=== PATIENT | male | born 1980 | race Caucasian/White ===

== ENCOUNTER 2018-03-14 16:49 | Inpatient (IN) | payer BC ==
[~2018-03-14] VITALS: Ht 190.5 cm; Wt 172.8 kg
[~2018-03-14 16:49] MED LIST: ATENOLOL50 MG PO; COLCRYS0.6 M1 PO; KEFLEX500 MG PO; PERCOCET 325 MG1 TA7 PO; VICODIN ES 7501 TAB PO
[2018-03-14 16:56] VITALS: BP 168/83
[2018-03-14 17:14] LABS: BILIRUBIN NEGATIVE (NEGATIVE); BLOOD 1+ (NEGATIVE); CLARITY SL CLOUDY (CLEAR); COLOR YELLOW (YELLOW); GLUCOSE NEGATIVE (NEGATIVE); KETONE NEGATIVE (NEGATIVE); LEUKO ESTERASE 3+ (NEGATIVE); NITRITE POSITIVE (NEGATIVE); PH 6.5 (5.0-9.0); UROBILINOGEN 0.2 E.U./dl (0.2-1.0)
[2018-03-14 17:22] LABS: BACTERIA 4+; EPITHELIAL CELLS 0-2; WBC TNTC wbc/hpf (0-5)
[2018-03-14 18:27] LABS: BASO # 0.1 10*3/uL (0.0-0.1); BASO % 0.6 % (0.0-1.0); EOS % 0.1 % (1.0-4.0); LYMPH % 7.2 % (27.0-41.0); MEAN CELL VOLUME 89.3 fl (80.0-94.0); MEAN CORPUSCULAR HGB 31.1 pg (27.0-31.0); MEAN CORPUSCULAR HGB CONC 34.8 g/dl (33.0-37.0); MEAN PLATELET VOLUME 9.2 fl (9.6-12.3); MONO # 1.3 10*3/uL (0.1-1.0); MONO % 9.4 % (3.0-9.0); NEUT # 11.5 10*3/uL (2.3-7.9); PLATELET COUNT AUTOMATED 266 10*3/uL (130-400); RED BLOOD COUNT 5.15 10*6/uL (4.50-5.90); RED CELL DISTRI WIDTH 13.9 % (0-14.5); WHITE BLOOD COUNT 14.1 10*3/uL (4.8-10.8)
[2018-03-14 18:32] VITALS: BP 154/62
[2018-03-14 18:40] LABS: ACT PARTIAL THROMBO TIME 25.2 SECONDS (20.8-31.5)
[2018-03-14 18:45] LABS: ALBUMIN 3.6 gm/dl (3.1-4.5); ALKALINE PHOSPHATASE 96 U/L (45-117); BUN 12 mg/dl (7-24); CHLORIDE 99 mmol/L (98-107); CREATININE 1.33 mg/dL (0.70-1.30); LIPASE 135 U/L (73-393); POTASSIUM 3.8 mmol/L (3.5-5.1); SGOT/AST 20 IU/L (3-35); SGPT/ALT 31 U/L (12-78); SODIUM 135 mmol/L (136-145)
[2018-03-14 19:20] VITALS: BP 133/65
[2018-03-14] MEDS ORDERED: ZYLOPRIM300 MG PO (21:54)
[2018-03-15] VITALS: BP 128/76
[2018-03-15 04:00] VITALS: BP 112/57
[2018-03-15 07:01] LABS: HEMOGLOBIN 14.6 g/dl (14.0-18.0); MEAN CELL VOLUME 89.4 fl (80.0-94.0); MEAN CORPUSCULAR HGB 30.4 pg (27.0-31.0); MEAN PLATELET VOLUME 9.5 fl (9.6-12.3); PLATELET COUNT AUTOMATED 237 10*3/uL (130-400); RED BLOOD COUNT 4.81 10*6/uL (4.50-5.90); RED CELL DISTRI WIDTH 14.1 % (0-14.5); WHITE BLOOD COUNT 20.7 10*3/uL (4.8-10.8)
[2018-03-15 07:35] LABS: CHLORIDE 99 mmol/L (98-107); POTASSIUM 3.4 mmol/L (3.5-5.1); SODIUM 134 mmol/L (136-145)
[2018-03-15 07:37] LABS: PLATELET SUFFICIENCY NORMAL (NORMAL); TOTAL CELLS COUNTED 100 #CELLS
[2018-03-15 07:46] LABS: ALBUMIN 3.2 gm/dl (3.1-4.5); ALKALINE PHOSPHATASE 85 U/L (45-117); BUN 11 mg/dl (7-24); CHOLESTEROL 127 mg/dL (<200); CREATININE 1.25 mg/dL (0.70-1.30); HDL CHOLESTEROL 37 mg/dl (40-60); LDL CHOLESTEROL 64 mg/dL (9-159); PHOSPHOROUS 2.1 mg/dL (2.5-4.9); SGOT/AST 22 IU/L (3-35); SGPT/ALT 27 U/L (12-78); TOTAL PROTEIN 7.3 gm/dL (6.4-8.2); TRIGLYCERIDES 129 mg/dl (<150); VLDL CHOLESTEROL 26 mg/dL (6-40)
[2018-03-15 08:00] VITALS: BP 137/68
[2018-03-15 12:00] VITALS: BP 120/50
[2018-03-15 16:00] VITALS: BP 111/69
[2018-03-15 20:00] VITALS: BP 109/60
[2018-03-16] VITALS: BP 123/53
[2018-03-16 04:00] VITALS: BP 110/61
[2018-03-16 06:13] LABS: HEMATOCRIT 39.4 % (42.0-52.0); HEMOGLOBIN 13.5 g/dl (14.0-18.0); MEAN CELL VOLUME 90.2 fl (80.0-94.0); MEAN CORPUSCULAR HGB 30.9 pg (27.0-31.0); MEAN CORPUSCULAR HGB CONC 34.3 g/dl (33.0-37.0); MEAN PLATELET VOLUME 9.3 fl (9.6-12.3); PLATELET COUNT AUTOMATED 212 10*3/uL (130-400); RED BLOOD COUNT 4.37 10*6/uL (4.50-5.90); RED CELL DISTRI WIDTH 14.3 % (0-14.5)
[2018-03-16 06:28] LABS: BUN 9 mg/dl (7-24); CHLORIDE 102 mmol/L (98-107); CREATININE 1.07 mg/dL (0.70-1.30); PHOSPHOROUS 2.2 mg/dL (2.5-4.9); SODIUM 136 mmol/L (136-145)
[2018-03-16 07:03] LABS: TOTAL CELLS COUNTED 100 #CELLS
[2018-03-16 07:04] LABS: PLATELET SUFFICIENCY NORMAL (NORMAL)
[2018-03-16 08:00] VITALS: BP 122/72
[2018-03-16 12:00] VITALS: BP 114/73
[2018-03-16] MEDS ORDERED: CIPROFLOXACIN500 M4 PO (12:50)
[2018-03-16 16:00] VITALS: BP 119/70
[2018-03-16 20:00] VITALS: BP 128/67
[2018-03-17] VITALS: BP 110/68
[2018-03-17 07:27] LABS: BASO # 0.1 10*3/uL (0.0-0.1); BASO % 0.9 % (0.0-1.0); EOS # 0.1 10*3/uL (0.0-0.4); EOS % 1.8 % (1.0-4.0); HEMATOCRIT 40.1 % (42.0-52.0); HEMOGLOBIN 13.4 g/dl (14.0-18.0); LYMPH # 0.6 10*3/uL (1.3-4.4); MEAN CELL VOLUME 91.6 fl (80.0-94.0); MEAN CORPUSCULAR HGB 30.6 pg (27.0-31.0); MEAN CORPUSCULAR HGB CONC 33.4 g/dl (33.0-37.0); MEAN PLATELET VOLUME 9.9 fl (9.6-12.3); MONO # 0.6 10*3/uL (0.1-1.0); MONO % 10.7 % (3.0-9.0); NEUT # 4.2 10*3/uL (2.3-7.9); NEUT % 75.2 % (47.0-73.0); PLATELET COUNT AUTOMATED 194 10*3/uL (130-400); RED BLOOD COUNT 4.38 10*6/uL (4.50-5.90); RED CELL DISTRI WIDTH 14.2 % (0-14.5); WHITE BLOOD COUNT 5.6 10*3/uL (4.8-10.8)
[2018-03-17 08:00] VITALS: BP 147/78
[2018-03-17 08:00] LABS: CHLORIDE 104 mmol/L (98-107); POTASSIUM 3.9 mmol/L (3.5-5.1); SODIUM 138 mmol/L (136-145)
[2018-03-17 08:05] LABS: BUN 11 mg/dl (7-24); CREATININE 0.95 mg/dL (0.70-1.30)
[2018-03-17] MEDS ORDERED: VITAMIN D5000 UNI1 PO (11:14)
== END 2018-03-17 12:00 | disposition home or self-care (01) | DRG 871 ==
LOC: ED 16:49 → 5E 18:52 → EDHOLD 18:52 → 5E 18:56
PROVIDERS: Emergency Medicine; Internal Medicine; Internal Medicine Hospice and Palliative Medicine
DX: A41.9 Sepsis, unspecified organism (principal); N17.0 Acute kidney failure with tubular necrosis; E87.2 Acidosis; E87.1 Hypo-osmolality and hyponatremia; N12 Tubulo-interstitial nephritis, not specified as acute or chronic; Z68.42 Body mass index [BMI] 45.0-49.9, adult; R65.20 Severe sepsis without septic shock; D72.810 Lymphocytopenia; R73.9 Hyperglycemia, unspecified; M1A.09X0 Idiopathic chronic gout, multiple sites, without tophus (tophi); B96.20 Unspecified Escherichia coli [E. coli] as the cause of diseases classified elsewhere; E80.6 Other disorders of bilirubin metabolism; E66.01 Morbid (severe) obesity due to excess calories; N20.0 Calculus of kidney; I10 Essential (primary) hypertension; Z82.49 Family history of ischemic heart disease and other diseases of the circulatory system; Z80.0 Family history of malignant neoplasm of digestive organs; Z80.8 Family history of malignant neoplasm of other organs or systems; Z83.3 Family history of diabetes mellitus; Z84.89 Family history of other specified conditions; Z84.1 Family history of disorders of kidney and ureter; Z79.899 Other long term (current) drug therapy; Z82.3 Family history of stroke

== ENCOUNTER → 2018-03-22 | Outpatient (CLI) | payer BC ==
[~2018-03-22] MED LIST changes: +CIPROFLOXACIN500 M4 PO; +VITAMIN D5000 UNI1 PO; +ZYLOPRIM300 MG PO
== END | disposition home or self-care (01) ==
LOC: RESCLI 01:22
DX: I10 Essential (primary) hypertension (principal); M1A.0790 Idiopathic chronic gout, unspecified ankle and foot, without tophus (tophi); N12 Tubulo-interstitial nephritis, not specified as acute or chronic; E55.9 Vitamin D deficiency, unspecified

== ENCOUNTER 2019-08-08 19:59 | Inpatient (IN) | payer BC ==
[~2019-08-08] VITALS: Ht 190.5 cm; Wt 161.0 kg
[2019-08-08 20:01] VITALS: BP 139/81
[2019-08-08 20:51] LABS: HEMATOCRIT 52.5 % (42.0-52.0); HEMOGLOBIN 17.6 g/dl (14.0-18.0); MEAN CELL VOLUME 91.5 fl (80.0-94.0); MEAN CORPUSCULAR HGB 30.7 pg (27.0-31.0); MEAN CORPUSCULAR HGB CONC 33.5 g/dl (33.0-37.0); MEAN PLATELET VOLUME 9.1 fl (9.6-12.3); PLATELET COUNT AUTOMATED 325 10*3/uL (130-400); RED BLOOD COUNT 5.74 10*6/uL (4.50-5.90); RED CELL DISTRI WIDTH 13.8 % (0-14.5); WHITE BLOOD COUNT 16.8 10*3/uL (4.8-10.8)
[2019-08-08 21:06] LABS: ALBUMIN 3.7 gm/dl (3.1-4.5); ALKALINE PHOSPHATASE 113 U/L (45-117); BUN 20 mg/dl (7-24); CHLORIDE 105 mmol/L (98-107); CREATININE 1.11 mg/dL (0.70-1.30); SGOT/AST 18 IU/L (3-35); SGPT/ALT 44 U/L (12-78); SODIUM 135 mmol/L (136-145); TOTAL PROTEIN 8.7 gm/dL (6.4-8.2)
[2019-08-08 21:16] LABS: TOTAL CELLS COUNTED 100 #CELLS
[2019-08-08 21:17] LABS: PLATELET SUFFICIENCY NORMAL (NORMAL)
[2019-08-08 23:33] VITALS: BP 138/72
[2019-08-09 00:31] VITALS: BP 146/65
--- NOTE | 2019-08-09 00:36 | NUR ---
PATIENT IN BED AT THIS TIME SITTING UP TALKING WITH BROTHER AT BEDSIDE. CONT [facility] IN PLACE. VSS. CALL LIGHT WITHIN REACH. RN WILL CONT TO MONITOR
--- NOTE | 2019-08-09 04:10 | NUR ---
PATIENT LAYING IN BED RESTING EYES AT THIS TIME EASILY AROUSED. RESP EASY AND NONLABORED. CALL LIGHT WITHIN REACH. 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 RN WILL CONT TO MONITOR.
[2019-08-09 06:35] LABS: HEMATOCRIT 48.4 % (42.0-52.0); HEMOGLOBIN 16.1 g/dl (14.0-18.0); MEAN CELL VOLUME 91.7 fl (80.0-94.0); MEAN CORPUSCULAR HGB 30.5 pg (27.0-31.0); MEAN CORPUSCULAR HGB CONC 33.3 g/dl (33.0-37.0); MEAN PLATELET VOLUME 9.4 fl (9.6-12.3); PLATELET COUNT AUTOMATED 287 10*3/uL (130-400); RED BLOOD COUNT 5.28 10*6/uL (4.50-5.90); RED CELL DISTRI WIDTH 13.7 % (0-14.5); WHITE BLOOD COUNT 13.7 10*3/uL (4.8-10.8)
[2019-08-09 06:51] VITALS: BP 133/77
[2019-08-09 07:02] LABS: ALBUMIN 3.2 gm/dl (3.1-4.5); ALKALINE PHOSPHATASE 106 U/L (45-117); BUN 18 mg/dl (7-24); CHLORIDE 107 mmol/L (98-107); CHOLESTEROL 154 mg/dL (<200); CREATININE 1.04 mg/dL (0.70-1.30); FREE T4 0.86 ng/dl (0.76-1.46); HDL CHOLESTEROL 39 mg/dl (40-60); LDL CHOLESTEROL 89 mg/dL (9-159); PHOSPHOROUS 1.6 mg/dL (2.5-4.9); POTASSIUM 3.9 mmol/L (3.5-5.1); SGOT/AST 18 IU/L (3-35); SGPT/ALT 38 U/L (12-78); SODIUM 136 mmol/L (136-145); TRIGLYCERIDES 130 mg/dl (<150); VLDL CHOLESTEROL 26 mg/dL (6-40)
[2019-08-09 07:10] LABS: ACT PARTIAL THROMBO TIME 30.1 SECONDS (20.0-32.1); INTERNATIONAL NORM RATIO 0.9 (2.0-3.5)
[2019-08-09 07:26] LABS: BASOPHILS 1 % (0-1); PLATELET SUFFICIENCY NORMAL (NORMAL); TOTAL CELLS COUNTED 100 #CELLS
--- NOTE | 2019-08-09 07:26 | NUR ---
PLACED ON 2L NC FOR POX 88-89% WHILE SLEEPING. STATES HE IS SUPPOSED TO WEAR A CPAP AT NIGHT.
[2019-08-09 07:38] LABS: THYROID STIM HORMONE (HS) 0.519 uIU/ml (0.358-4.75)
[2019-08-09 08:30] VITALS: BP 149/83
--- NOTE | 2019-08-09 08:45 | NUR ---
A 39, admitted to , under the services of LARY Warren DO with a diagnosis of SEPSIS . Chief complaint is COUGH, SOB. Patient arrived via stretcher from ER. Monitor applied. Initial assessment completed. Vital signs taken and recorded. LARY WARREN DO notified of admission to the unit. Orders received. See assessment for past medical history, medications and allergies. Patient and/or family oriented to unit. [facility] visitation policy reviewed. Clothing/patient valuable form completed. NAYELI GREEN
--- NOTE | 2019-08-09 08:47 | NUR ---
DR WESLEY OFFICE CALLED REGARDING CONSULT
--- NOTE | 2019-08-09 09:00 | NUR ---
Software Deployment Engineer in to talk to patient. Patient states lives at home with family. There are few steps in the home. Physician: [facility]acy: [facility] [place] [facility]: none Patient's level of ADLs: INDEPENDENT Patient has working utilities: all working DME: none Follow-up physician's appointment after d/c: will be made by hospitalist nurse director upon discharge Does patient want to access PORTAL?: no Discharge plan discussed with patient, he states he lives at home with family, is independent in adls and ambulation, works, drives, he states he will be returning home when able and denies any home needs. KELSI FLORES
[2019-08-09 12:00] VITALS: BP 152/80
[2019-08-09] MEDS ORDERED: LEVAQUIN750 M1 PO (13:53)
[2019-08-09] MEDS ORDERED: PREDNISONE10 MG PO (13:53)
[2019-08-09] MEDS ORDERED: VITAMIN D32000 UNI1 PO (13:53)
[2019-08-09] MEDS ORDERED: DOXYCYCLINE100 M3 PO (13:54)
--- NOTE | 2019-08-09 15:13 | NUR ---
Discharge instructions reviewed with patient/family. Patient receptive and verbalizes understanding. Follow-up care arranged. Written instructions given to patient/family. NAYELI GREEN
== END 2019-08-09 15:51 | disposition home or self-care (01) | DRG 872 ==
LOC: ED 19:59 → EDHOLD 23:26 → 4E 23:26
PROVIDERS: Emergency Medicine; Internal Medicine; ADMIT Internal Medicine
DX: A41.9 Sepsis, unspecified organism (principal); J45.909 Unspecified asthma, uncomplicated; I49.8 Other specified cardiac arrhythmias; J01.90 Acute sinusitis, unspecified; R73.9 Hyperglycemia, unspecified; M10.9 Gout, unspecified; E66.01 Morbid (severe) obesity due to excess calories; I10 Essential (primary) hypertension; Z83.3 Family history of diabetes mellitus; Z82.49 Family history of ischemic heart disease and other diseases of the circulatory system; Z82.3 Family history of stroke; Z80.0 Family history of malignant neoplasm of digestive organs; Z79.899 Other long term (current) drug therapy

== ENCOUNTER 2020-11-02 17:33 | Inpatient (IN) | payer BC ==
[~2020-11-02] VITALS: Ht 191 cm; Wt 172.9 kg
[~2020-11-02 17:33] MED LIST changes: +DOXYCYCLINE100 M3 PO; +LEVAQUIN750 M1 PO; +PREDNISONE10 MG PO; +VITAMIN D32000 UNI1 PO
[2020-11-02 17:35] VITALS: BP 128/81
[2020-11-02 18:04] LABS: BASO % 0.3 % (0.0-1.0); EOS % 0.3 % (1.0-4.0); HEMATOCRIT 52.6 % (42.0-52.0); LYMPH # 1.1 10*3/uL (1.3-4.4); LYMPH % 16.4 % (27.0-41.0); MEAN CELL VOLUME 90.2 fl (80.0-94.0); MEAN CORPUSCULAR HGB 29.7 pg (27.0-31.0); MEAN CORPUSCULAR HGB CONC 32.9 g/dl (33.0-37.0); MEAN PLATELET VOLUME 9.5 fl (9.6-12.3); MONO # 0.6 10*3/uL (0.1-1.0); NEUT # 4.6 10*3/uL (2.3-7.9); NEUT % 71.9 % (47.0-73.0); PLATELET COUNT AUTOMATED 195 10*3/uL (130-400); RED BLOOD COUNT 5.83 10*6/uL (4.50-5.90); RED CELL DISTRI WIDTH 13.9 % (0-14.5); WHITE BLOOD COUNT 6.4 10*3/uL (4.8-10.8)
[2020-11-02 18:16] LABS: ACT PARTIAL THROMBO TIME 30.2 SECONDS (20.0-32.1)
[2020-11-02 18:30] LABS: ALBUMIN 3.2 gm/dl (3.1-4.5); ALKALINE PHOSPHATASE 85 U/L (45-117); BUN 12 mg/dl (7-24); CHLORIDE 104 mmol/L (98-107); CPK 246 U/L (39-308); CREATININE 1.24 mg/dL (0.70-1.30); LDH 606 U/L (87-241); SGOT/AST 81 IU/L (3-35); SGPT/ALT 68 U/L (12-78); SODIUM 135 mmol/L (136-145); TOTAL PROTEIN 7.8 gm/dL (6.4-8.2)
[2020-11-02 18:31] LABS: POTASSIUM 4.8 mmol/L (3.5-5.1); TROPONIN I < 0.015 ng/ml (<0.045)
[2020-11-02 18:33] VITALS: BP 128/79
[2020-11-02 19:09] LABS: ABG BASE EXCESS -0.5 mmol/L (-2.0-2.0); ARTERIAL BLOOD GAS PH 7.452 (7.35-7.45)
--- NOTE | 2020-11-02 19:10 | NUR ---
THE PATIENT WAS GIVEN A URINAL FOR A SPECIMAN
[2020-11-02 20:22] LABS: BILIRUBIN 1+ (Negative); BLOOD Negative (Negative); CLARITY Clear (Clear); COLOR Dark Yellow (Yellow); GLUCOSE Negative (Negative); KETONE Trace (Negative); LEUKO ESTERASE 1+ (Negative); NITRITE Negative (Negative); PH 5.5 (4.5-8.0)
[2020-11-02 20:35] LABS: BACTERIA 1+; MUCOUS 1+
--- NOTE | 2020-11-02 21:35 | NUR ---
THE PATIENT TESTED POSITIVE FOR COVID 10/26/20. HE DID REFUSE THE SWAB FOR TODAY. HE HAS THE RESULTS FROM THE TEST WITH HIM
--- NOTE | 2020-11-02 22:24 | NUR ---
PT ARRIVED FROM ED AT [id number]. HE IS IN NO ACUTE DISTRESS AT THIS TIME, VITALS ALL STABLE.
[2020-11-02 22:25] VITALS: BP 138/80
--- NOTE | 2020-11-02 23:01 | NUR ---
24 HR chart check completed.
[2020-11-03 06:09] LABS: HEMATOCRIT 51.3 % (42.0-52.0); MEAN CELL VOLUME 89.7 fl (80.0-94.0); MEAN CORPUSCULAR HGB 30.2 pg (27.0-31.0); MEAN CORPUSCULAR HGB CONC 33.7 g/dl (33.0-37.0); MEAN PLATELET VOLUME 9.9 fl (9.6-12.3); PLATELET COUNT AUTOMATED 210 10*3/uL (130-400); RED BLOOD COUNT 5.72 10*6/uL (4.50-5.90); RED CELL DISTRI WIDTH 13.7 % (0-14.5); WHITE BLOOD COUNT 5.5 10*3/uL (4.8-10.8)
[2020-11-03 06:36] LABS: ALBUMIN 3.3 gm/dl (3.1-4.5); BUN 13 mg/dl (7-24); CHLORIDE 103 mmol/L (98-107); CHOLESTEROL 145 mg/dL (<200); CREATININE 0.96 mg/dL (0.70-1.30); LDH 342 U/L (87-241); POTASSIUM 4.3 mmol/L (3.5-5.1); SGOT/AST 51 IU/L (3-35); SGPT/ALT 62 U/L (12-78); SODIUM 135 mmol/L (136-145); TOTAL PROTEIN 7.9 gm/dL (6.4-8.2); TRIGLYCERIDES 89 mg/dl (<150); VLDL CHOLESTEROL 18 mg/dL (6-40)
[2020-11-03 06:38] LABS: ALKALINE PHOSPHATASE 89 U/L (45-117); HDL CHOLESTEROL 48 mg/dl (40-60); LDL CHOLESTEROL 79 mg/dL (9-159)
[2020-11-03 06:56] LABS: PLATELET SUFFICIENCY NORMAL (NORMAL); TOTAL CELLS COUNTED 100 #CELLS
[2020-11-03 06:57] LABS: BURR CELLS FEW
[2020-11-03 07:13] LABS: VITAMIN D, 25-HYDROXY 25.8 ng/mL (30-100)
[2020-11-03 07:14] LABS: FERRITIN 1579.1 ng/mL (22.0-322.0)
[2020-11-03 08:00] VITALS: BP 144/91
[2020-11-03 12:00] VITALS: BP 118/72
[2020-11-03 16:00] VITALS: BP 100/58
--- NOTE | 2020-11-03 17:53 | NUR ---
PT ON PHONE WITH . REPORTS NO PAIN/DISTRESS.
[2020-11-03 20:00] VITALS: BP 135/62
--- NOTE | 2020-11-03 21:28 | NUR ---
PT RESTING COMFORTABLY IN BED. NO NEEDS AT THIS TIME.
[2020-11-04] VITALS: BP 118/73
--- NOTE | 2020-11-04 00:53 | NUR ---
PATIENT RESTING IN BED WITH NO NEEDS MADE. BED IN LOWEST POSITION, CALL LIGHT IN REACH
--- NOTE | 2020-11-04 06:02 | NUR ---
PATIENT RESTED THROUGHOUT THE NIGHT WITH NO NEEDS MADE
[2020-11-04 06:54] LABS: MEAN CELL VOLUME 89.6 fl (80.0-94.0); MEAN CORPUSCULAR HGB 30.1 pg (27.0-31.0); MEAN CORPUSCULAR HGB CONC 33.6 g/dl (33.0-37.0); MEAN PLATELET VOLUME 9.7 fl (9.6-12.3); RED BLOOD COUNT 5.58 10*6/uL (4.50-5.90); RED CELL DISTRI WIDTH 13.6 % (0-14.5); WHITE BLOOD COUNT 10.2 10*3/uL (4.8-10.8)
[2020-11-04 06:56] LABS: PLATELET COUNT AUTOMATED 287 10*3/uL (130-400)
[2020-11-04 07:07] LABS: BUN 17 mg/dl (7-24); CHLORIDE 107 mmol/L (98-107); CREATININE 0.95 mg/dL (0.70-1.30); LDH 287 U/L (87-241); POTASSIUM 4.2 mmol/L (3.5-5.1); SODIUM 139 mmol/L (136-145)
[2020-11-04 07:22] LABS: ATYPICAL LYMPHS 2 % (0-0); PLATELET SUFFICIENCY NORMAL (NORMAL); TOTAL CELLS COUNTED 100 #CELLS
[2020-11-04 08:00] VITALS: BP 132/78
--- NOTE | 2020-11-04 08:00 | NUR ---
IN TO ROOM. PATIENT AWAKE ALERT AND ORIENTED. NO STATED COMPLAINTS AT THIS TIME. PT ON 2.5 LITERS NASAL CANNULA. NO SOB NOTED AT REST. PT HAS NO STATED COMPLAINTS AND DENIES PAIN. STATES HE FEELS GREAT TODAY. RESPIRATIONS ARE EASY AND REGULAR. PT ABLE TO REPOSITION SELF AND IS ENCOURAGED TO DO SO. BED IN LOWEST LOCKED POSITION AND CALL LIGHT WITHIN REACH.
[2020-11-04 12:00] VITALS: BP 135/65
[2020-11-04 16:00] VITALS: BP 140/75
--- NOTE | 2020-11-04 17:00 | NUR ---
PT CAME OFF OF OXYGEN TO SHOWER. DENIES ANY DIZZINESS OR SHORTNESS OF BREATH. PULSE OX 93% ON ROOM AIR. PT IS COMFORTABLE IN BED. NO SOB NOTED. BED IN LOWEST LOCKED POSITION.
[2020-11-04 20:00] VITALS: BP 124/69
--- NOTE | 2020-11-04 21:00 | NUR ---
PATIENT RESTING IN BED WATCHING TV WITH NO NEEDS MADE. DENIES SHORTNESS OF BREATH AT THIS TIME. BED IN LOWEST POSITION, CALL LIGHT IN REACH
[2020-11-05] VITALS: BP 118/67
[2020-11-05 06:12] LABS: BASO % 0.3 % (0.0-1.0); HEMATOCRIT 50.7 % (42.0-52.0); LYMPH # 1.2 10*3/uL (1.3-4.4); LYMPH % 10.3 % (27.0-41.0); MEAN CELL VOLUME 90.9 fl (80.0-94.0); MEAN CORPUSCULAR HGB 30.1 pg (27.0-31.0); MEAN CORPUSCULAR HGB CONC 33.1 g/dl (33.0-37.0); MEAN PLATELET VOLUME 9.5 fl (9.6-12.3); MONO # 1.1 10*3/uL (0.1-1.0); MONO % 9.5 % (3.0-9.0); NEUT # 8.9 10*3/uL (2.3-7.9); NEUT % 77.8 % (47.0-73.0); PLATELET COUNT AUTOMATED 340 10*3/uL (130-400); RED BLOOD COUNT 5.58 10*6/uL (4.50-5.90); RED CELL DISTRI WIDTH 13.8 % (0-14.5); WHITE BLOOD COUNT 11.5 10*3/uL (4.8-10.8)
[2020-11-05 06:15] LABS: CHLORIDE 111 mmol/L (98-107); POTASSIUM 4.6 mmol/L (3.5-5.1); SODIUM 141 mmol/L (136-145)
[2020-11-05 06:43] LABS: ALBUMIN 3.1 gm/dl (3.1-4.5); ALKALINE PHOSPHATASE 76 U/L (45-117); BUN 18 mg/dl (7-24); CPK 84 U/L (39-308); CREATININE 0.95 mg/dL (0.70-1.30); LDH 268 U/L (87-241); SGOT/AST 36 IU/L (3-35); SGPT/ALT 68 U/L (12-78); TOTAL PROTEIN 7.1 gm/dL (6.4-8.2)
[2020-11-05 08:00] VITALS: BP 116/63
--- NOTE | 2020-11-05 09:00 | NUR ---
PATIENT SELF-PRONING AT THIS TIME. RESPIRATIONS EASY, REGULAR. 02 IN USE VIA 1.5LNC. POX 94% VIA 1.5L. PT DENIES ANY SOB AT REST. PT DENIES ANY PAIN/DISCOMFORT. WILL CONTINUE TO MONITOR HR & PULSE OX. SEE SHIFT ASSESSMENT. CALL LIGHT WITHIN REACH.
--- NOTE | 2020-11-05 09:00 | NUR ---
Glaze Mixer in to talk to patient. Patient states lives at home with . There are no steps in the home. Physician: Pharmacy: Home health services: none Patient's level of ADLs: INDEPENDENT Patient has working utilities: all working DME: none Follow-up physician's appointment after d/c: will be made by hospitalist nurse director upon discharge with doctor of patient's choi Does patient want to access PORTAL?: no Discharge plan discussed. patient lives at home with , is independent in adls and ambulation, works, drives, he stated he will return home when discharged, patient is currently covid positive on 2.5l of oxygen, patient does not wear oxygen at home, case management will follow. KELSI FLORES
[2020-11-05 12:00] VITALS: BP 139/74
--- NOTE | 2020-11-05 14:15 | NUR ---
PHARMACY CALLED FOR IV MEDICATION. AWAITING MED ARRIVAL.
[2020-11-05] MEDS ORDERED: DECADRON4 MG PO (14:19)
--- NOTE | 2020-11-05 14:33 | NUR ---
PT ASSESSED FOR HOME OXYGEN. PT DID NOT QUALIFY. PT AT REST SPO2 95% RA, HR74, RR 16, B/P 139/74 PT AMBULATED SPO2 94% RA PT AT REST SPO2 94% RA, HR 74, RR 16, B/P 146/79 RN NOTIFIED AND NOTIFIED
--- NOTE | 2020-11-05 15:19 | NUR ---
IN TO SEE PATIENT.
[2020-11-05 16:00] VITALS: BP 111/61
--- NOTE | 2020-11-05 16:12 | NUR ---
Discharge instructions reviewed with patient/family. Patient receptive and verbalizes understanding. Follow-up care arranged. Written instructions given to patient/family. ANGEL BLACKMON.
--- NOTE | 2020-11-05 16:34 | NUR ---
PATIENT DISCHARGED AT THIS TIME VIA W/C. BELONGINGS WITH PATIENT.
== END 2020-11-05 16:34 | disposition home or self-care (01) | DRG 871 ==
LOC: ED 17:33 → 4E 19:55 → EDHOLD 19:55 → 4E 21:06
PROVIDERS: Emergency Medicine; Hospitalist; Internal Medicine; Registered Nurse; ADMIT Internal Medicine; ATTEND Internal Medicine
PROC: XW033E5 Introduction of Remdesivir Anti-infective into Peripheral Vein, Percutaneous Approach, New Technology Group 5 (ICD-10-PCS; principal; 2020-11-03)
DX: A41.9 Sepsis, unspecified organism (principal); J12.82 Pneumonia due to coronavirus disease 2019; U07.1 COVID-19; J96.01 Acute respiratory failure with hypoxia; E87.1 Hypo-osmolality and hyponatremia; D68.59 Other primary thrombophilia; Z68.42 Body mass index [BMI] 45.0-49.9, adult; R65.20 Severe sepsis without septic shock; R82.71 Bacteriuria; M1A.9XX0 Chronic gout, unspecified, without tophus (tophi); I10 Essential (primary) hypertension; E66.01 Morbid (severe) obesity due to excess calories; R79.89 Other specified abnormal findings of blood chemistry; R74.01 Elevation of levels of liver transaminase levels; Z82.49 Family history of ischemic heart disease and other diseases of the circulatory system; Z83.3 Family history of diabetes mellitus; Z80.0 Family history of malignant neoplasm of digestive organs; Z84.1 Family history of disorders of kidney and ureter; Z79.899 Other long term (current) drug therapy

== ENCOUNTER 2022-06-01 16:34 | Emergency (ER) | payer BC ==
[~2022-06-01] VITALS: Ht 190.5 cm; Wt 181.4 kg
[~2022-06-01 16:34] MED LIST changes: +DECADRON4 MG PO
[2022-06-01 16:56] LABS: BASO # 0.1 10*3/uL (0.0-0.1); BASO % 0.8 % (0.0-1.0); EOS # 0.3 10*3/uL (0.0-0.4); EOS % 3.3 % (1.0-4.0); LYMPH # 1.5 10*3/uL (1.3-4.4); LYMPH % 18.4 % (27.0-41.0); MEAN CELL VOLUME 90.6 fl (80.0-94.0); MEAN CORPUSCULAR HGB 30.6 pg (27.0-31.0); MEAN CORPUSCULAR HGB CONC 33.8 g/dl (33.0-37.0); MEAN PLATELET VOLUME 9.4 fl (9.6-12.3); MONO # 0.6 10*3/uL (0.1-1.0); MONO % 7.3 % (3.0-9.0); NEUT # 5.6 10*3/uL (2.3-7.9); NEUT % 69.4 % (47.0-73.0); PLATELET COUNT AUTOMATED 265 10*3/uL (130-400); RED CELL DISTRI WIDTH 14.2 % (0-14.5)
[2022-06-01 17:07] LABS: ACT PARTIAL THROMBO TIME 30.4 SECONDS (20.0-32.1)
[2022-06-01 17:15] LABS: ALKALINE PHOSPHATASE 99 U/L (45-117); BUN 19 mg/dl (7-24); CHLORIDE 109 mmol/L (98-107); CREATININE 0.92 mg/dL (0.70-1.30); POTASSIUM 4.2 mmol/L (3.5-5.1); SGOT/AST 35 IU/L (3-35); SGPT/ALT 50 U/L (12-78); SODIUM 141 mmol/L (136-145); TOTAL PROTEIN 7.5 gm/dL (6.4-8.2)
== END 2022-06-01 20:37 | disposition home or self-care (01) ==
LOC: ED 16:34
PROVIDERS: Emergency Medicine
DX: R07.89 Other chest pain (principal); F41.1 Generalized anxiety disorder; F43.0 Acute stress reaction; I10 Essential (primary) hypertension; F17.220 Nicotine dependence, chewing tobacco, uncomplicated; Z79.899 Other long term (current) drug therapy; Z98.890 Other specified postprocedural states

== ENCOUNTER 2025-04-04 16:58 | Emergency (ER) | payer BC, OTHER ==
[~2025-04-04] VITALS: Wt 137.9 kg
[2025-04-04] MEDS ORDERED: MORPHINE Sulfate 2 MG/ML SYR IM ONE (17:00)
[2025-04-04 17:15] LABS: BASO # 0.1 10*3/uL (0.0-0.1); BASO % 0.8 % (0.0-1.0); EOS # 0.2 10*3/uL (0.0-0.4); EOS % 2.3 % (1.0-4.0); HEMATOCRIT 49.2 % (42.0-52.0); MEAN CORPUSCULAR HGB 30.9 pg (27.0-31.0); MEAN CORPUSCULAR HGB CONC 35.2 g/dl (33.0-37.0); MEAN PLATELET VOLUME 9.5 fl (9.6-12.3); MONO # 0.5 10*3/uL (0.1-1.0); MONO % 6.6 % (3.0-9.0); NEUT # 5.2 10*3/uL (2.3-7.9); NEUT % 67.5 % (47.0-73.0); PLATELET COUNT AUTOMATED 252 10*3/uL (130-400); RED BLOOD COUNT 5.59 10*6/uL (4.50-5.90); RED CELL DISTRI WIDTH 13.2 % (0-14.5); WHITE BLOOD COUNT 7.7 10*3/uL (4.8-10.8)
[2025-04-04 17:41] LABS: ALKALINE PHOSPHATASE 85 U/L (46-116); BUN 19 mg/dl (9-23); CHLORIDE 103 mmol/L (98-107); POTASSIUM 3.8 mmol/L (3.4-5.1); SGPT/ALT 20 U/L (5-49); TOTAL PROTEIN 7.5 gm/dL (6.0-8.0)
[2025-04-04] MEDS ORDERED: SODIUM CHLORIDE 0.9% 1,000 ML IV ONE ×3 (17:55→20:00)
== END 2025-04-04 19:35 | disposition short-term general hospital (02) ==
LOC: ED 16:58
PROVIDERS: Internal Medicine
DX: T79.6XXA Traumatic ischemia of muscle, initial encounter (principal); T14.8XXA Other injury of unspecified body region, initial encounter; X58.XXXA Exposure to other specified factors, initial encounter; Y93.89 Activity, other specified; Y92.89 Other specified places as the place of occurrence of the external cause; Y99.8 Other external cause status